=== PATIENT | male | born 1960 ===

== ENCOUNTER 2022-07-23 05:30 | Day surgery (SDC) | payer OTHER | END 2022-07-23 11:05 | disposition home or self-care (01) | LOC: AMB-ENDOS 05:30 | PROVIDERS: ATTEND Surgery | DX: K63.9 Disease of intestine, unspecified (principal); R19.4 Change in bowel habit; Z86.010 Personal history of colon polyps; K57.30 Diverticulosis of large intestine without perforation or abscess without bleeding; K64.8 Other hemorrhoids; E10.9 Type 1 diabetes mellitus without complications; E03.9 Hypothyroidism, unspecified; E78.5 Hyperlipidemia, unspecified; I10 Essential (primary) hypertension; Z20.822 Contact with and (suspected) exposure to COVID-19 ==

== ENCOUNTER 2022-09-22 11:00 | Inpatient (IN) | payer OTHER ==
[~2022-09-22] VITALS: Ht 172.7 cm; Wt 95.3 kg
[2022-09-22] MEDS ORDERED: SYNTHROID150 MCG PO (15:03)
[2022-09-22] MEDS ORDERED: LISINOP PO (15:04)
[2022-09-22] MEDS ORDERED: SIMVAST PO (15:04)
[2022-09-22] MEDS ORDERED: JANUMET XR 50-1 EAC1 PO (15:05)
[2022-09-30] MEDS ORDERED: ZESTRIL2.5 MG PO (13:15)
[2022-09-30] MEDS ORDERED: SIMVASTATIN5 MG (13:16)
[2022-10-02] MEDS ORDERED: INTESTINEX680 M1 PO (11:11)
[2022-10-02] MEDS ORDERED: LEVSIN/SL0.125 MG SL (11:11)
[2022-10-02] MEDS ORDERED: PERCOCET 5-3251 EACH PO (11:11)
== END 2022-10-02 12:45 | disposition home or self-care (01) | DRG 331 ==
LOC: SURG 09-24 10:45 → O/R 09-30 05:46 → SURG 09-30 05:46
PROVIDERS: ADMIT Surgery; ATTEND Surgery
PROC: 07BB4ZZ Excision of Mesenteric Lymphatic, Percutaneous Endoscopic Approach (ICD-10-PCS; 2022-09-30)
PROC: 0DTF4ZZ Resection of Right Large Intestine, Percutaneous Endoscopic Approach (ICD-10-PCS; principal; 2022-09-30 11:45)
DX: D12.0 Benign neoplasm of cecum (principal); R19.4 Change in bowel habit; K62.89 Other specified diseases of anus and rectum; Z20.822 Contact with and (suspected) exposure to COVID-19

== ENCOUNTER 2022-09-30 08:11 | Outpatient (CLI) | payer OTHER ==
[~2022-09-30 08:11] MED LIST: JANUMET XR 50-1 EAC1 PO; LISINOP PO; SIMVAST PO; SYNTHROID150 MCG PO
[2022-09-30] MEDS ORDERED: ZESTRIL2.5 MG PO (13:15)
[2022-09-30] MEDS ORDERED: SIMVASTATIN5 MG (13:16)
== END 2022-09-30 08:28 | disposition home or self-care (01) ==
LOC: LAB 08:11
PROVIDERS: ATTEND Surgery
DX: Z20.822 Contact with and (suspected) exposure to COVID-19 (principal)